=== PATIENT | male | born 1985 | race Hispanic/Latino ===

== ENCOUNTER 2018-06-30 15:02 | Emergency (ER) | payer MEDICAID ==
[2018-06-30 15:10] VITALS: TEMP 98.1
[2018-06-30 15:50] VITALS: BP 127/75; PULSE 87; RESP 20; O2SAT 95
--- NOTE | 2018-06-30 16:55 | RAD ---
HISTORY: CP COMPARISON: None available. TECHNIQUE: Chest, one view. FINDINGS: Examination limited by habitus. LUNGS: No focal consolidation. Please note that chest x-ray has limited sensitivity for the detection of pulmonary masses. PLEURA: No significant pleural effusion identified. No definite pneumothorax . CARDIOVASCULAR: Cardiomegaly. No significant atherosclerotic calcification present. OSSEOUS STRUCTURES: No acute osseous abnormality identified. VISUALIZED UPPER ABDOMEN: Unremarkable. OTHER FINDINGS: None. IMPRESSION: Cardiomegaly.
[2018-06-30 17:08] LABS: BASO # 0.1 K/uL (0.0-0.2); BASO % 0.5 % (0.0-2.0); EOS # 0.1 K/uL (0.0-0.7); EOS % 1.1 % (0.0-4.0); HEMOGLOBIN 15.3 g/dL (12.0-18.0); LYMPH # 2.3 K/uL (1.0-4.3); LYMPH % 20.5 % (20.0-40.0); MEAN CELL VOLUME 84.6 fL (80.0-94.0); MEAN CORPUSCULAR HEMOGLOBIN 28.6 pg (27.0-31.0); MEAN CORPUSCULAR HGB CONC 33.8 g/dL (33.0-37.0); MEAN PLATELET VOLUME 7.7 fL (7.2-11.7); MONO # 0.6 K/uL (0.0-0.8); MONO % 5.3 % (0.0-10.0); NEUT # 8.1 K/uL (1.8-7.0); NEUT % 72.6 % (50.0-75.0); NRBC % 0.1 % (0.0-2.0); RBC 5.36 Mil/uL (4.40-5.90); RED CELL DISTRIBUTION WIDTH 13.4 % (11.5-14.5); WHITE BLOOD COUNT 11.2 K/uL (4.8-10.8)
--- NOTE | 2018-06-30 17:14 | C.PDOC ---
History Of Present Illness 32 year old male presents to ED with complaint of chest pain, palpitations, cold sweats, and vomiting since last night. He describes the chest pain as a pressure-like and states that it radiates to his neck and head. Patient has a P MHx of antiphospholipid syndrome and PE (approx 10 years ago); he is not currently taking any blood thinners. He states that he had SOB for the last few days and an episode of left leg swelling 2 weeks ago (now resolved). Patient denies alcohol abuse and admits to smoking 1ppd for the last 15 years. 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 He denies fever, nausea, diarrhea. Time Seen by Provider: 06/30/18 15:49 Chief Complaint (Nursing): Chest Pain History Per: Patient History/Exam Limitations: no limitations Onset/Duration Of Symptoms: Days (1) Current Symptoms Are (Timing): Still Present Severity: Moderate Quality: Pressure Associated Symptoms: Diaphoresis. denies: Nausea, Dyspnea Past Medical History Reviewed: Historical Data, Nursing Documentation, Vital Signs Vital Signs: Last Vital Signs Temp 98.1 F 06/30/18 15:09 Pulse 87 06/30/18 15:43 Resp 20 06/30/18 15:43 BP 127/75 06/30/18 15:43 Pulse Ox 95 06/30/18 15:43 - Medical History Other PMH: anti-phospholipid syndrome and PE that occurred approx 10 years ago Surgical History: No Surg Hx Family History: States: Unknown Family Hx - Social History Hx Alcohol Use: No Hx Substance Use: Yes Review Of Systems Constitutional: Positive for: Sweats. Negative for: Fever, Chills, Weakness Cardiovascular: Positive for: Chest Pain (pressure), Palpitations Respiratory: Positive for: Shortness of Breath. Negative for: Cough Gastrointestinal: Positive for: Vomiting. Negative for: Nausea Neurological: Negative for: Weakness, Numbness, Dizziness Physical Exam - Physical Exam Appears: Well, Non-toxic, No Acute Distress Skin: Normal Color, Warm, Dry, Other (scattered track pollock and acchymoses B/L arms/hands) Head: Normacephalic Oral Mucosa: Moist Neck: Supple Cardiovascular: Rhythm Regular, No Murmur, Other (tachycardic) Respiratory: Normal Breath Sounds, No Accessory Muscle Use, No Rales, No Rhonchi, No Wheezing Gastrointestinal/Abdominal: Normal Exam, Bowel Sounds, Soft, No Tenderness Extremity: No Calf Tenderness, Capillary Refill (<2 seconds all digits ), No Swelling (bilateral lower extremities) Pulses: Left Dorsalis Pedis: Normal, Right Dorsalis Pedis: Normal Neurological/Psych: Oriented x3 ED Course And Treatment - Laboratory Results Result Diagrams: 06/30/18 17:01 06/30/18 17:01 ECG: Interpreted By Me, Viewed By Me (sinus rhythm 79 bpm, normal axis, no acute ST/T wave changes) ECG Interpretation: Normal O2 Sat by Pulse Oximetry: 95 (RA) Pulse Ox Interpretation: Normal - Other Rad CXR X-Ray: Interpreted by Me, Viewed By Me Interpretation: IMPRESSION: Cardiomegaly. Progress Note: Blood work, EKG, CXR, CTA chest ordered. Medical Decision Making Medical Decision Making: Wells' Criteria for Pulmonary Embolism from [email or web address] on 06/30/2018 All calculations should be rechecked by clinician prior to use RESULT SUMMARY: 6.0 points Moderate risk group: 16.2% chance of PE in an ED population. Another study assigned scores > 4 as PE Likely and had a 28% incidence of PE. INPUTS: Clinical signs and symptoms of DVT > 0 = No PE is #1 diagnosis OR equally likely > 3 = Yes Heart rate > 100 > 1.5 = Yes Immobilization at least 3 days OR surgery in the previous 4 weeks > 0 = No Previous, objectively diagnosed PE or DVT > 1.5 = Yes Hemoptysis > 0 = No Malignancy w/ treatment within 6 months or palliative > 0 = No Disposition - Disposition Disposition Time: 19:00 Condition: STABLE Forms: [facility] (Faroese) - Clinical Impression Clinical Impression: Chest pain, Antiphospholipid antibody syndrome - Scribe Statement The provider has reviewed the documentation as recorded by the Scribe (Kirsten Can) All medical record entries made by the Scribe were at my direction and person ally dictated by me. I have reviewed the chart and agree that the record accurately reflects my personal performance of the history, physical exam, medical decision making, and the department course for this patient. I have also personally directed, reviewed, and agree with the discharge instructions and disposition. Physician Patient Turnover Patient Signed Over To: Kishore Catherine Handoff Comments: pending CTA chest
[2018-06-30 17:15] LABS: VENOUS BLOOD GAS PCO2 49 mmHg (40-60); VENOUS BLOOD GAS PO2 44 mm/Hg (30-55); VENOUS BLOOD PH 7.38 (7.32-7.43)
[2018-06-30 17:18] LABS: INR 1.2; PROTHROMBIN TIME 12.9 SECONDS (9.7-12.2)
[2018-06-30 17:29] LABS: BLOOD UREA NITROGEN 14 mg/dL (9-20); CALCIUM 9.9 mg/dl (8.6-10.4); GFR NON-AFRICAN AMERICAN > 60
[2018-06-30 17:53] LABS: ALB/GLOB RATIO 1.5 (1.0-2.1); ALBUMIN 5.5 g/dL (3.5-5.0); ALT/SGPT 37 U/L (21-72); AST/SGOT 47 U/L (17-59)
--- NOTE | 2018-07-01 18:22 | CARD ---
APPROVED REPORT Date of service: 06/30/2018 EKG Measurement Heart [id number] <Conclusion> Normal sinus rhythm with sinus arrhythmia Normal ECG
== END 2018-06-30 19:17 | disposition left against medical advice (07) ==
LOC: C.ER 15:02
DX: R07.9 Chest pain, unspecified (principal); D68.61 Antiphospholipid syndrome